=== PATIENT | female | born 1950 | race Caucasian/White ===

== ENCOUNTER → 2017-03-03 | Outpatient (CLI) | payer MEDICARE, BC | LOC: MC.RAD 13:48 | DX: Z12.31 Encounter for screening mammogram for malignant neoplasm of breast (principal) ==

== ENCOUNTER → 2018-03-26 | Outpatient (CLI) | payer MEDICARE, BC | LOC: MC.RAD 14:16 | DX: Z12.31 Encounter for screening mammogram for malignant neoplasm of breast (principal) ==

== ENCOUNTER → 2020-09-21 | Outpatient (CLI) | payer MEDICARE | LOC: MC.RAD 13:24 | DX: Z12.31 Encounter for screening mammogram for malignant neoplasm of breast (principal) ==